=== PATIENT | male | born 1970 | race Caucasian/White ===

== ENCOUNTER 2023-06-10 10:11 | Emergency (ER) | payer OTHER, SELFPAY ==
[2023-06-10 10:15] VITALS: BP 131/92; PULSE 73; RESP 16; TEMP 36.8; O2SAT 97; BMI 31.4
--- NOTE | 2023-06-10 10:24 | XR_ITS ---
The [address] [address] Patient Name: CRISTY NORTH MRN: [id number] date: 1970 Sex: M Assigned Patient Location: ER Current Patient Location: ER Accession/Order Number: [id number] Exam Date: 06/10/2023 10:32 Report Date: 06/10/2023 14:27 At the request of: NASRA RICH Procedure: XR cervical spine 2-3V EXAM: XR CERVICAL SPINE 2-3V HISTORY: ATRAUMATIC PAIN WITH RADIATION TO LEFT THUMB FINDINGS/IMPRESSION: AP, lateral and open-mouth views for three views were obtained There is mild reversal of cervical spinal curvature. The alignment is otherwise satisfactory. No acute fracture or subluxation. Mild spondylitic changes with mild disc space narrowing and endplate osteophytosis noted at C4/C5 and C5/C6 levels. Mild degenerative narrowing of the predental space with associated sclerosis and osteophytosis. Posterior nuchal ligament calcification at the C5-C6 level measures 14 mm. Cervical spinal pedicles are short contributing to background developmental canal stenosis. On the AP image bilateral facet arthritic and uncovertebral arthritic changes are identified. This is most apparent toward the left at C4-C5 and C5-C6 levels. Prevertebral soft tissues demonstrate no acute abnormality. Electronically authenticated by: LISA JOSÉ Date: 06/10/2023 14:27
--- NOTE | 2023-06-10 10:24 | ED.NECK1 ---
HPI - Neck Pain/Injury General Chief Complaint: Neck Pain/Injury Stated Complaint: NECK PAIN Time Seen by Provider: 06/10/23 10:14 Source: patient Mode of arrival: walk-in Limitations: no limitations History of Present Illness HPI Narrative: 53-year-old male presents for pain in his posterior neck with radiation down to the left thumb. No trauma. He has a history of bone spurs in his neck. No recent injury and he's never had surgery on his neck. He's never had an MRI. No radiation to the right side. The pain is moderate. Related Data Previous Rx's Medication Instructions Recorded hydrocodone 5 mg-acetaminophen 325 1 tab PO Q6H PRN pain #20 tabs 06/10/23 mg tablet prednisone 10 mg tablet See Rx Instructions .Route 06/10/23 .COMPLEX #30 tabs Allergies Allergy/AdvReac Type Severity Reaction Status Date / Time No Known Drug Allergies Allergy Verified 06/10/23 10:20 Review of Systems ROS Narrative A ten point review of systems is negative except as noted above. PFSH PFSH Social History Smoking status: Never smoker Exam Narrative Exam Narrative: Nurses note and vital signs reviewed and patient is not hypoxic. General: The patient appears well and in no apparent distress. Patient is resting comfortably on cart. Skin: Warm, dry, no pallor noted. There is no rash noted. Head: Normocephalic, atraumatic Eye: Normal conjunctiva, no drainage Ears, Nose, Mouth, and Throat: oral mucosa is moist. Nares patent. Cardiovascular: Regular Rate and Rhythm Respiratory: Patient is in no distress, no accessory muscle use, lungs are clear to auscultation, no wheezing, rales or rhonchi Back: non-tender, cervical spine nontender. No bruise rash or swelling. GI: nontender Musculoskeletal: The patient has no evidence of calf tenderness, no pitting edema, symmetrical pulses noted bilaterally Neurological: A&O, normal speech; hand grasp intact. All muscle groups intact in the upper extremities. Psychiatric: Cooperative Constitutional Vital Signs, click to edit/add: Last Vital Signs Temp 98.3 F 06/10/23 10:15 Pulse 73 06/10/23 10:15 Resp 16 06/10/23 10:15 BP 131/92 H 06/10/23 10:15 Pulse Ox 97 06/10/23 10:15 O2 Del Method Room Air 06/10/23 10:15 Course Vital Signs Vital signs: Vital Signs Temperature 98.3 F 06/10/23 10:15 Pulse Rate 73 06/10/23 10:15 Respiratory Rate 16 06/10/23 10:15 Blood Pressure 131/92 H 06/10/23 10:15 Pulse Oximetry 97 06/10/23 10:15 Oxygen Delivery Method Room Air 06/10/23 10:15 Temperature 98.3 F 06/10/23 10:15 Pulse Rate 73 06/10/23 10:15 Respiratory Rate 16 06/10/23 10:15 Blood Pressure 131/92 H 06/10/23 10:15 Pulse Oximetry 97 06/10/23 10:15 Oxygen Delivery Method Room Air 06/10/23 10:15 MDM - Neck Pain/Injury MDM Narrative Medical decision making narrative: cervical x-rays show degenerative changes particularly at the C4-C5 and C5-C6 levels. He is prescribed prednisone and Rochelle and will follow-up with his doctor. Treatment diagnosis and follow-up were discussed with the patient. Differential Diagnosis Differential diagnosis: Likely disc disorder of cervical region, closed subluxation of cervical spine, fracture of cervical spine without lesion of spinal cord, cervical radiculopathy, cervical spondylosis and strain of neck muscle Imaging Data cervical x-ray: Radiologist's impression: degenerative changes at C4-C5 and C5-C6 Discharge Plan Discharge Chief Complaint: Neck Pain/Injury Clinical Impression: Cervical radiculopathy Patient Disposition: Home, Self-Care Time of Disposition Decision: 12:15 Condition: Good Mode of Transportation: Private Vehicle Prescriptions / Home Meds: New prednisone 10 mg tablet See Rx Instructions .ROUTE .COMPLEX Qty: 30 0RF Rx Instructions: 4 by mouth daily for three days then 3 by mouth daily for three days then 2 by mouth daily for three days then 1 by mouth daily for three days hydrocodone-acetaminophen 5-325 mg tablet 1 tab PO Q6H PRN (Reason: pain) Qty: 20 0RF Instructions: Cervical Radiculopathy (ED) Stand Alone Forms: Portal Instructions Referrals: LA POZO [Primary Care Provider] - 1 week
== END 2023-06-10 12:29 | disposition home or self-care (01) ==
PROVIDERS: Emergency Provider Emergency Medicine; PCP Family Medicine
DX: M54.12 Radiculopathy, cervical region (principal)
CPT/HCPCS: 72040; 99283